=== PATIENT | male | born 1965 | race Caucasian/White ===

== ENCOUNTER 2021-12-16 16:10 | Observation (INO) ==
[2021-12-16] MEDS ORDERED: *HR* Rocuronium Bromide 50 MG/5 ML VIAL ONE (20:44)
[2021-12-16] MEDS ORDERED: Lidocaine -MPF 2% 5 ML VIAL ONE (20:44)
[2021-12-16] MEDS ORDERED: Ondansetron 4 MG/2 ML VIAL ONE (20:44)
[2021-12-16] MEDS ORDERED: *HR* FentaNYL (PF) 100 MCG/2 ML VIAL ONE ×2 (20:44→23:19)
[2021-12-16] MEDS ORDERED: *HR* Midazolam HCl 2 MG/2 ML VIAL ONE (20:45)
[2021-12-16] MEDS ORDERED: *HR* Propofol 200 MG/20 ML VIAL IVP ONE (20:45)
[2021-12-16] MEDS ORDERED: *HR* FentaNYL (PF) 100 MCG/2 ML VIAL IVP PRN (20:58)
[2021-12-16] MEDS ORDERED: Ondansetron 4 MG/2 ML VIAL IVP PRN ×2 (20:58→21:41)
[2021-12-16] MEDS ORDERED: *HR* Metoprolol 5 MG/5 ML VIAL IVP PRN (20:58)
[2021-12-16] MEDS ORDERED: Naloxone 0.4 MG/ML INJ IVP PRN ×2 (20:58→21:41)
[2021-12-16] MEDS ORDERED: *HR* HYDROmorphone (PF) 1 MG/ML SYRINGE IVP PRN (20:58)
[2021-12-16] MEDS ORDERED: Albuterol 2.5 MG/3 ML NEBULIZER IH PRN (20:58)
[2021-12-16] MEDS ORDERED: Nitroglycerin 0.4 MG TAB.SUBL SL PRN (20:58)
[2021-12-16] MEDS ORDERED: Lidocaine HCL 4 ML Topical Solution (Laryng-O-Jet Kit Sterile Pak) TP ONE (21:18)
[2021-12-16] MEDS ORDERED: Ketamine HCL *QUVA* 50mg (1mL) SYRINGE ONE (21:19)
[2021-12-16] MEDS ORDERED: Acetaminophen 325 MG TABLET PO PRN (21:41)
[2021-12-16] MEDS ORDERED: *HR* HYDROcodone/Acet 5/325 mg TABLET PO PRN (21:41)
[2021-12-16] MEDS ORDERED: Melatonin 3 MG TABLET PO PRN (21:41)
[2021-12-16] MEDS ORDERED: Isovue-300 50ML VIAL ONE (21:56)
[2021-12-16] MEDS ORDERED: ceFAZolin 2,000 MG in Water for inj. (sterile) 20 ML IVP ONE (21:57)
[2021-12-16] MEDS ORDERED: EPHEDrine 50 MG/ML VIAL ONE (22:30)
[2021-12-16] MEDS ORDERED: Sugammadex Sodium 200 MG/2 ML VIAL IV ONE (23:20)
[2021-12-16] MEDS ORDERED: Ketorolac 30 MG/ML VIAL ONE (23:21)
[2021-12-16] MEDS ORDERED: *HR* Labetalol 20 MG/4 ML SYRINGE IVP ONE (23:22)
[2021-12-16] MEDS ORDERED: *HR* LORazepam 2 MG/ML VIAL IVP PRN ×3 (23:27)
[2021-12-16] MEDS ORDERED: Ipratropium/Albuterol Neb 3 ML IH PRN (23:27)
[2021-12-16] MEDS ORDERED: *HR* Promethazine 25 MG/ML VIAL IM PRN (23:29)
[2021-12-16] MEDS ORDERED: Ringers Solution, Lactated 1,000 ML IVC SCH (23:30)
[2021-12-17] MEDS ORDERED: *HR* Labetalol 20 MG/4 ML SYRINGE IVP ONE (00:14)
[2021-12-17] MEDS ORDERED: Ondansetron 4 MG/2 ML VIAL IVP PRN (01:31)
[2021-12-17] MEDS ORDERED: *HR* LORazepam 2 MG/ML VIAL IVP PRN ×3 (01:31)
[2021-12-17] MEDS ORDERED: Ipratropium/Albuterol Neb 3 ML IH PRN (01:31)
[2021-12-17] MEDS ORDERED: Melatonin 3 MG TABLET PO PRN (01:31)
[2021-12-17] MEDS ORDERED: Naloxone 0.4 MG/ML INJ IVP PRN (01:31)
[2021-12-17] MEDS ORDERED: Ringers Solution, Lactated 1,000 ML IVC SCH (01:31)
[2021-12-17] MEDS ORDERED: *HR* Promethazine 25 MG/ML VIAL IM PRN (01:31)
[2021-12-17] MEDS: Ketorolac 30 MG/ML VIAL IVP SCH ×2 (02:36→08:09)
[2021-12-17 02:41] LABS: Basophils % 0.2 %; Eosinophils % 0.1 %; Hematocrit 39.5 % (37.5-50.1); Hemoglobin 12.7 g/dL (12.9-16.9); Immature Granulocytes % 0.6 % (0-4); Lymphocytes # 0.3 K/mcL (0.6-4.6); Mean Corpuscular HGB Conc 32.2 g/dL (31.6-35.5); Mean Corpuscular Hemoglobin 23.9 pg (28.0-33.3); Mean Corpuscular Volume 74.2 fL (83.0-100.0); Mean Platelet Volume 10.3 fL (9.4-12.4); Monocytes # 0.3 K/mcL (0.0-1.3); Monocytes % 2.7 %; Neutrophils # 9.2 K/mcL (1.6-8.9); Nucleated Red Blood Cells 0.3 /100 WBC (0); Platelet Count 176 K/mcL (140-400); Red Blood Count 5.32 M/mcL (4.19-5.50); Red Cell Distribution Width 16.6 % (11.5-14.5); Segmented Neutrophils % 93.4 %; White Blood Count 9.8 K/mcL (4.3-11.1)
[2021-12-17 02:42] LABS: % Iron Saturation 52 % (20-55); Chol/HDL Ratio 2.2 (0-4.9); Cholesterol 128 mg/dL (< 200); HDL Cholesterol 58 mg/dL (40-59); Iron 146 mcg/dL (65-175); LDL Cholesterol,Calculated 61 mg/dL (< 100); Transferrin 201 mg/dL (203-362); Triglycerides 45 mg/dL (< 150)
[2021-12-17 02:43] LABS: Troponin I < 0.03 ng/mL (< 0.04)
[2021-12-17 02:45] LABS: INR 1.1; Prothrombin Time 12.1 Seconds (9.4-12.1)
[2021-12-17 02:50] LABS: Estimated Average Glucose 97 mg/dl
[2021-12-17 02:58] LABS: Thyroid Stimulating Hormone 1.318 mcIU/mL (0.340-5.600)
[2021-12-17 03:04] LABS: Folate 7.5 ng/mL (3.0-16.0)
[2021-12-17 03:05] LABS: Alanine Aminotransferase 123 Units/L (7-52); Albumin 3.9 g/dL (3.5-5.7); Albumin/Globulin Ratio 2.1 (1.1-2.2); Alkaline Phosphatase 85 Units/L (34-104); Aspartate Amino Transferase 193 Units/L (13-39); BUN/Creatinine Ratio 9 (6-26); Bilirubin,Total 3.9 mg/dL (0.3-1.0); Blood Urea Nitrogen 7 mg/dL (6-20); Calcium 7.8 mg/dL (8.6-10.3); Carbon Dioxide 22 mEq/L (23-29); Chloride 104 mEq/L (98-107); Globulin 1.9 g/dL (2.4-3.5); Glucose 137 mg/dL (70-105); Magnesium 1.6 mg/dL (1.6-2.6); Osmolality,Calculated 278 (280-300); Potassium 3.9 mEq/L (3.5-5.1); Sodium 134 mEq/L (136-145); Total Protein 5.8 g/dL (6.4-8.9); Vitamin B12 240 pg/mL (250-1100); eGFR For African Americans > 60 (> 60); eGFR For Non-African Americans > 60 (> 60)
[2021-12-17 03:06] LABS: Ferritin > 1500 ng/mL (20-250)
[2021-12-17] MEDS ORDERED: Dextrose Gel 15 GM/37.5 ML TUBE PO PRN ×2 (03:08)
[2021-12-17] MEDS ORDERED: D5% in Water 1,000 ML IVC PRN (03:08)
[2021-12-17] MEDS ORDERED: *HR* Dextrose 50 % in Water (Syg) 50 ML SYRINGE IVP PRN (03:08)
[2021-12-17] MEDS ORDERED: Perflutren Lipid Microsphere 1.3 ML in 0.9 % Sodium Chloride 8.7 ML IVP PRN (04:37)
[2021-12-17] MEDS ORDERED: Nitroglycerin 0.4 MG TAB.SUBL SL PRN (04:45)
[2021-12-17] MEDS ORDERED: Pantoprazole 40 MG VIAL IVP SCH (06:30)
[2021-12-17] MEDS ORDERED: Piperacillin/Tazobactam 3.375 GM in 0.9 % Sodium Chloride Mini Bag 100 ML IVPB SCH ×2 (08:00)
[2021-12-17] MEDS: Aspirin 81 MG TAB.CHEW PO SCH (08:10)
[2021-12-17] MEDS: Folic Acid 1 MG TABLET PO SCH (08:10)
[2021-12-17] MEDS: Vitamin B Complex/Vit C/Vit E 1 EACH TABLET PO SCH (08:10)
[2021-12-17] MEDS: Thiamine (B-1) 100 MG TABLET PO SCH (08:10)
[2021-12-17] MEDS: NIFEdipine XL (24 HR) 60 MG TAB.ER.24 PO SCH (08:10)
[2021-12-17] MEDS: Cyanocobalamin (B-12) 1,000 MCG TABLET PO SCH (08:10)
[2021-12-17 08:59] LABS: Alanine Aminotransferase 122 Units/L (7-52); Albumin/Globulin Ratio 2.2 (1.1-2.2); Alkaline Phosphatase 84 Units/L (34-104); Aspartate Amino Transferase 193 Units/L (13-39); Bilirubin,Direct 1.2 mg/dL (0.0-0.2); Bilirubin,Indirect 2.7 mg/dL (0.0-1.0); Bilirubin,Total 3.9 mg/dL (0.3-1.0); Globulin 1.8 g/dL (2.4-3.5); Total Protein 5.8 g/dL (6.4-8.9)
[2021-12-17] MEDS ORDERED: Folic Acid 1 MG TABLET PO SCH (09:00)
[2021-12-17] MEDS ORDERED: Thiamine (B-1) 100 MG TABLET PO SCH (09:00)
[2021-12-17] MEDS ORDERED: NIFEdipine XL (24 HR) 60 MG TAB.ER.24 PO SCH (09:00)
[2021-12-17] MEDS ORDERED: Vitamin B Complex/Vit C/Vit E 1 EACH TABLET PO SCH (09:00)
[2021-12-17] MEDS ORDERED: Lactobacillus 1 EACH CAP.SPRINK PO SCH (09:00)
[2021-12-17] MEDS: *HR* OxyCODONE Immed Rel 5 MG TABLET PO PRN ×3 (10:40→21:20)
[2021-12-17] MEDS ORDERED: lisinopriL 20 MG TABLET PO SCH (10:45)
[2021-12-17] MEDS ORDERED: lisinopriL 20 MG TABLET PO ONE (13:50)
[2021-12-18 03:59] LABS: Albumin 3.6 g/dL (3.5-5.7); Bilirubin,Direct 0.8 mg/dL (0.0-0.2); Bilirubin,Indirect 2.2 mg/dL (0.0-1.0); Globulin 1.8 g/dL (2.4-3.5); Total Protein 5.4 g/dL (6.4-8.9)
[2021-12-18] MEDS: Vitamin B Complex/Vit C/Vit E 1 EACH TABLET PO SCH (08:01)
[2021-12-18] MEDS: NIFEdipine XL (24 HR) 60 MG TAB.ER.24 PO SCH (08:01)
[2021-12-18] MEDS: Folic Acid 1 MG TABLET PO SCH (08:01)
[2021-12-18] MEDS: Aspirin 81 MG TAB.CHEW PO SCH (08:01)
[2021-12-18] MEDS: Cyanocobalamin (B-12) 1,000 MCG TABLET PO SCH (08:02)
[2021-12-18] MEDS: Thiamine (B-1) 100 MG TABLET PO SCH (08:02)
[2021-12-18 08:06] VITALS: BP 150/97; PULSE 83; TEMP 97.8; O2SAT 97
[2021-12-18] MEDS ORDERED: lisinopriL 20 MG TABLET PO SCH (09:00)
[2021-12-18 14:43] LABS: Hepatitis B Surface Antigen Nonreactive (Nonreactive)
[2021-12-18 15:12] LABS: Hepatitis B Core IgM Nonreactive (Nonreactive)
[2021-12-18 15:13] LABS: Hepatitis A Antibody IgM Nonreactive (Nonreactive); Hepatitis C Virus Antibody Nonreactive (Nonreactive)
== END 2021-12-18 10:25 | disposition home or self-care (01) ==
LOC: 3ANU → SUATTDRO 20:33
PROVIDERS: ADMIT Internal Medicine; ATTEND Internal Medicine